=== PATIENT | female | born 1970 | race Caucasian/White ===

== ENCOUNTER 2019-11-05 08:42 | Emergency (ER) | payer BC ==
[2019-11-05 08:50] VITALS: BP 144/88
--- NOTE | 2019-11-05 09:06 | ED Physician Documentation ---
PD HPI SKIN - Stated complaint Stated Complaint: RASH - Chief complaint Chief Complaint: General - History obtained from History obtained from: Patient - History of Present Illness Timing - onset: How many hours ago (1), Today Timing - duration: Hours (1) Timing - details: Abrupt onset (She felt warm and flush and noticed her skin to be very red about 20 or 30 minutes after taking a niacin tablet for the first time. She was just adding it as part of her vitamin supplements and not particularly to treat cholesterol or such. She did not have any other unusual foods or new medications. She denied any trouble swallowing or breathing.), Still present (resolving while here) Location: Bodywide Quality / character: Burning, Discolored (very red) Associated symptoms: No: Fever, Myalgias, N/V/D Contributing factors: Exposed to medication (Niacin) Recently seen: Not recently seen Review of Systems Constitutional: denies: Fever, Chills, Myalgias Nose: denies: Rhinorrhea / runny nose, Congestion Throat: denies: Sore throat Cardiac: denies: Chest pain / pressure Respiratory: denies: Dyspnea, Cough GI: denies: Nausea, Vomiting, Diarrhea Neurologic: denies: Generalized weakness, Near syncope PD PAST MEDICAL HISTORY - Past Medical History Past Medical History: No - Present Medications Home Medications: Ambulatory Orders Medication Instructions Recorded Confirmed Multivit-Min/Ferrous Sulfate 11/05/19 [Multilex Tablet] No Known Home Medications 11/05/19 11/05/19 - Allergies Allergies/Adverse Reactions: Allergies Allergy/AdvReac Type Severity Reaction Status Date / Time No Known Drug Allergies Allergy Verified 11/05/19 08:50 PD ED PE NORMAL - Vitals Vital signs reviewed: Yes - General General: Alert and oriented X 3, No acute distress, Well developed/nourished - HEENT HEENT: Moist mucous membranes, Pharynx benign - Neck Neck: Supple, no meningeal sign, No adenopathy - Cardiac Cardiac: RRR, No murmur - Respiratory Respiratory: Clear bilaterally - Derm Derm: Warm and dry. No: Normal color (She still has a mild to moderate diffuse redness without any induration, vesicles, hives per se.) - Extremities Extremities: Normal ROM s pain - Neuro Neuro: Alert and oriented X 3, No motor deficit, Normal speech Results - Vitals Vitals: Oxygen O2 Source Room air PD MEDICAL DECISION MAKING - ED course Complexity details: considered differential (Seems classic niacin flushing without any indication of a general allergic reaction), d/w patient Departure - Departure Disposition: 01 Home, Self Care Clinical Impression: Adverse reaction to niacin Qualifiers: Encounter type: initial encounter Qualified Code(s): T46.7X5A - Adverse effect of peripheral vasodilators, initial encounter Condition: Stable Record reviewed to determine appropriate education?: Yes Comments: Niacin acts on the prostacyclins to cause a direct dilation of the blood vessels and hence the flushing diffusely. It will fade away on its own. It is not a true allergic reaction per se. It can be decreased by lower dose of the niacin or taking an aspirin 20 or 30 minutes prior to the niacin. It also will decrease if you have a slower release of the medicine into your system and therefore an extended release niacin usually does not have the effect. You can probably get an adequate amount of niacin and just in a multivitamin. Discharge Date/Time: 11/05/19 09:33
== END 2019-11-05 09:33 | disposition home or self-care (01) ==
LOC: ED 08:42
DX: R23.2 Flushing (principal); T46.7X5A Adverse effect of peripheral vasodilators, initial encounter
CPT/HCPCS: 99281; 99284

== ENCOUNTER 2021-09-26 13:16 | Outpatient (CLI) | payer BC ==
[2021-09-26] MEDS ORDERED: IOVERSOL 320 100 ML VIAL IVP ONE (13:44)
[2021-09-26] MEDS: IOVERSOL 320 100 ML VIAL IVP ONE (17:29)
--- NOTE | 2021-09-26 17:30 | CT Report ---
PROCEDURE: CHEST W INDICATIONS: THYROID CA CONTRAST: IV CONTRAST: Optiray 320 ml: 100 PO CONTRAST: *NO PO CONTRAST TECHNIQUE: After the administration of intravenous contrast, 1 mm axial images were acquired from the pulmonary apices through the posterior costophrenic angles. Axial 5 mm soft tissue kernel reconstructions were performed as well as 8 mm axial MIP and coronal and sagittal 5 mm reformations. For radiation dose reduction, the following was used: automated exposure control, adjustment of mA and/or kV according to patient size. COMPARISON: None. FINDINGS: Image quality: Excellent. Lungs and pleura: 4 mm solid nodule in the right middle lobe, 4/162. 2 mm subpleural nodule posterol ateral right lower lobe, 4/190. 3 mm juxta fissural nodule in the left midlung, most likely juxta fis sural lymph node. No other lung nodules or masses. No acute air space opacities. No pleural effusion s or pneumothorax. Central and peripheral airways are patent and normal in caliber. Mediastinum: Heart size is normal. No pericardial effusion. No mediastinal or hilar adenopathy by size criteria. Thoracic aorta and central pulmonary arteries are normal in size. Esophagus is shira l in caliber. No hiatal hernia. Bones and chest wall: No suspicious bony lesions. No vertebral body compression fractures. No axil stephanie or supraclavicular adenopathy by size criteria. The thyroid gland is normal size, slightly hete rogeneous.. Abdomen: Visualized upper abdominal solid organs appear normal. Upper abdominal bowel loops are nor mal in caliber. IMPRESSION: 1. 2 and 4 mm right lung nodules. These are nonspecific. 6 month follow-up is recommended given histo ry of thyroid cancer. 2. Normal size, heterogeneous thyroid. Please see accompanying soft tissue neck CT for further detail . CLINICAL RECOMMENDATION STATEMENTS: In patients <35 years with an ITN detected on CT, MRI, or extrathyroidal ultrasound, the Committee re commends further evaluation with dedicated thyroid ultrasound if the nodule is "e1 cm and has no susp icious imaging features, and if the patient has normal life expectancy. In patients "e35 years with an ITN detected on CT, MRI, or extrathyroidal ultrasound, the Committee r ecommends further evaluation with dedicated thyroid ultrasound if the nodule is "e1.5 cm and has no s uspicious imaging features, and if the patient has normal life expectancy. (ACR, 2014) Reviewed by: Lubna Osborn MD on 09/26/2021 5:29 PM PST Approved by: Lubna Osborn MD on 09/26/2021 5:29 PM PST Station ID: [id number]
--- NOTE | 2021-09-26 17:34 | CT Report ---
PROCEDURE: SOFT TISSUE NECK W INDICATIONS: THYROID CA CONTRAST: IV CONTRAST: Optiray 320 ml: 100 PO CONTRAST: *NO PO CONTRAST TECHNIQUE: After the administration of intravenous contrast, 3.0 mm axial sections acquired from the sella to th e aortic arch. Additional oblique axial 3.0 mm sections acquired through the pharynx. 3 mm thick co timothy reformats were generated. For radiation dose reduction, the following was used: automated exp osure control, adjustment of mA and/or kV according to patient size. COMPARISON: Correlation is made with the accompanying chest CT, 09/26/2021 FINDINGS: Image quality: Excellent. Lymph nodes: Confluent, matted lymph nodes can be seen on the left, which are centered at level 2A a nd measures at least 4.8 x 2.9 cm in greatest axial dimension, with a craniocaudal extent of nearly 7 cm. Enlarged abnormal lymph nodes are also seen on the right at level 2A, with the largest solitary lymph node measuring 1.8 x 1.5 cm in greatest axial dimension. Abnormal left-sided lymph nodes are se en elsewhere, including abnormally enlarged left supraclavicular lymph nodes, the largest solitary le ft supraclavicular lymph node measuring 2.1 x 1.3 cm in greatest axial dimension. Vessels: Visualized vasculature appears patent. Neck spaces: The oropharynx, nasopharynx, and pharynx demonstrate no mucosal lesions. The vocal cor ds, false vocal cords, pyriform sinuses, epiglottis, vallecula, and tongue base all appear normal. E xtramucosal spaces appear unremarkable. Glands: The parotid and submandibular glands appear normal. At the inferior pole of the left thyroi d, there is a low-density lesion that measures 7 mm. Miscellaneous: Visualized brain and orbits appear normal. Lung apices appear clear. Superficial so ft tissues appear normal. Bones: No suspicious bony lesions. Visualized sinuses and mastoids appear unremarkable. At least m oderate lower cervical spine degenerative changes are seen. IMPRESSION: Bilateral metastatic lymph nodes are seen on both sides of the neck, which are worse on the left side . There is a confluent/matted group of lymph nodes seen on the left that measures 4.8 x 2.9 x 7 cm. Reviewed by: Gokul Graham MD on 09/26/2021 4:33 PM [facility] Approved by: Gokul Graham MD on 09/26/2021 4:33 PM [facility] Station ID: [id number]
== END 2021-09-26 13:17 | disposition home or self-care (01) ==
LOC: DI 13:16
PROVIDERS: ATTEND Otolaryngology
DX: C73 Malignant neoplasm of thyroid gland (principal); R91.8 Other nonspecific abnormal finding of lung field; C96.9 Malignant neoplasm of lymphoid, hematopoietic and related tissue, unspecified
CPT/HCPCS: 70491; 71260; Q9967

== ENCOUNTER 2022-07-06 12:51 | Outpatient (CLI) | payer OTHER ==
--- NOTE | 2022-07-06 12:50 | XRAY Report ---
PROCEDURE: Ankle 3 View LT INDICATIONS: LEFT ANKLE PAIN TECHNIQUE: 3 views of the ankle were acquired. COMPARISON: None FINDINGS: Bones: No acute fractures or dislocations. Ankle mortise is normally aligned. No suspicious bony l esions. Soft tissues: Moderate soft tissue swelling overlying the medial and lateral malleolus. No tibiotala r joint effusion. Achilles tendon appears normal. IMPRESSION: Moderate soft tissue swelling of the ankle without underlying fracture or dislocation. If there is continued clinical concern for internal soft tissue derangement, consider further evalua tion with MRI. Reviewed by: Adrián Bragg MD on 07/06/2022 12:48 PM PST Approved by: Adrián Bragg MD on 07/06/2022 12:48 PM PST Station ID: [id number]
== END 2022-07-06 12:52 | disposition home or self-care (01) ==
LOC: DI.S 12:51
PROVIDERS: ATTEND Emergency Medicine
DX: S93.412A Sprain of calcaneofibular ligament of left ankle, initial encounter (principal)